=== PATIENT | female | born 1955 | race Caucasian/White ===

== ENCOUNTER → 2016-09-27 | Outpatient (CLI) | payer BC ==
[~2016-09-27] MED LIST: ASPI-557 PO; BUPR200T6 PO; CO Q 10 PO; IBUP-1264 PO; IOHEXOL 300 MG/ML 75ml INJECTION ONE; NORMAL SALINE 100 ML ONE; ONDA4TAB7 PO; RANI-198 PO; SALINE FLUSH 10ml SYRINGE ONE; TRAM50TA53 PO
--- NOTE | 2016-09-27 15:47 | DI ---
Indication: ITS.REASON: R22.9 SWELLING PROCEDURE: CT CHEST W/CONTRAST: Encounter: Initial Comparison: CT chest dated March 31, 2008 Technique: Axial CT images were performed through the chest after the administration of intravenous contrast. Coronal and sagittal two-dimensional reformats. Automated Exposure Control and Iterative Reconstruction dose reducing techniques were utilized. Contrast: Omnipaque 300 75 mL Findings: Linear atelectasis or scarring in both lower lobes. No pneumonia, pleural effusion or pneumothorax. No worrisome pulmonary nodule or mass identified. The central airways are patent. Thyroid gland is unremarkable. No axillary or mediastinal adenopathy. Heart size is normal. The upper abdomen shows a low-attenuation lesion in the peripheral right lobe of the liver which cannot be definitively characterized on this study but stable from the prior study consistent with a benign cyst. Cervical spine hardware, incompletely evaluated. Bone windows are otherwise unremarkable for age. Impression: Essentially negative chest CT. No acute disease process seen. .
== END ==
LOC: IMA 15:09
PROVIDERS: ATTEND Surgery
DX: R22.2 Localized swelling, mass and lump, trunk (principal)